=== PATIENT | male | born 1935 | race Caucasian/White ===

== ENCOUNTER 2018-01-25 23:57 | Inpatient (IN) | payer MEDICARE ==
--- NOTE | 2018-01-26 00:23 | ED ---
Chest Pain HPI - General Chief Complaint: Chest Pain Stated Complaint: chest pain Time Seen by Provider: 01/26/18 00:08 Source: patient, EMS Mode of arrival: EMS Limitations: no limitations - History of Present Illness Initial Comments: This patient is an 82-year-old man with history of previous cervical spine injury and paraplegia who presents to be evaluated for substernal chest pain that started tonight. The patient states the pain is in the lower substernal and epigastric area. The pain is constant, aching, and moderately severe. He has not discovered any worsening or relieving factors. He did have some associated nausea. No other associated symptoms. MD Complaint: chest pain Onset/Timin -: hour(s) Onset: during rest Pain Location: substernal Pain Radiation: none Severity: severe Quality: aching Consistency: constant Improves With: nothing Worsens With: nothing Anginal Symptoms: nausea Treatments Prior to Arrival: aspirin, nitroglycerin, oxygen - Related Data Allergies Allergy/AdvReac Type Severity Reaction Status Date / Time No Known Allergies Allergy Verified 01/26/18 00:26 Review of Systems ROS Statement: Those systems with pertinent positive or pertinent negative responses have been documented in the HPI. ROS Other: All systems not noted in ROS Statement are negative. Constitutional: Denies: fever, chills Respiratory: Denies: cough, dyspnea Cardiovascular: Reports: as per HPI, chest pain. Denies: palpitations, edema, syncope Gastrointestinal: Reports: nausea. Denies: abdominal pain, vomiting, diarrhea, melena, hematochezia Genitourinary: Denies: hematuria Musculoskeletal: Denies: back pain Skin: Denies: rash Neurological: Denies: headache EKG Findings - EKG Results: EKG: interpreted by ERMD, sinus rhythm, normal axis, normal ST/T - Blocks, [place], Hypertrophy, ST Abn: AV and intraventricular conduction: right bundle branch block (fixed/ intermittent, complete/incomplete) Past Medical History Past Medical History: Chest Pain / Angina, Dementia History of Any Multi-Drug Resistant Organisms: None Reported Past Surgical History: Coronary Bypass/CABG Past Psychological History: No Psychological Hx Reported Smoking Status: Never smoker Past Alcohol Use History: None Reported Past Drug Use History: None Reported General Exam Limitations: no limitations General appearance: alert, in no apparent distress Head exam: Present: atraumatic, normocephalic Eye exam: Present: normal appearance. Absent: scleral icterus, conjunctival injection Respiratory exam: Present: normal lung sounds bilaterally. Absent: respiratory distress, wheezes, rales, rhonchi, stridor Cardiovascular Exam: Present: regular rate, normal rhythm, systolic murmur ( Grade 2/6 systolic ejection murmur at the left sternal border.). Absent: diastolic murmur, rubs, gallop GI/Abdominal exam: Present: soft. Absent: distended, tenderness, guarding, rebound, rigid, organomegaly, mass, pulsatile mass, hernia Extremities exam: Present: normal capillary refill. Absent: pedal edema Neurological exam: Present: alert Skin exam: Present: warm, dry, intact, normal color. Absent: rash Course Vital Signs 01/26/18 01/26/18 01/26/18 00:07 00:57 02:47 Temperature 97.7 F 98.2 F Pulse Rate 73 81 72 Respiratory 18 18 18 Rate Blood Pressure 194/93 194/91 192/88 O2 Sat by Pulse 96 98 98 Oximetry Disposition Clinical Impression: Chest pain, Hypertension Disposition: ADMITTED IP TO THIS HOSP Condition: Fair Instructions: Chest Pain (ED) Referrals: Mando Davila MD [Primary Care Provider] - 1-2 days
[2018-01-26 00:32] LABS: Basophils # (A) 0.1 k/uL (0-0.2); Basophils % (A) 1 %; Eosinophils # (A) 0.9 k/uL (0-0.7); Eosinophils % (A) 7 %; HCT 44.4 % (39.0-53.0); HGB 15.4 gm/dL (13.0-17.5); Lymphocytes # (A) 2.1 k/uL (1.0-4.8); Lymphocytes % (A) 16 %; MCH 30.9 pg (25.0-35.0); MCHC 34.6 g/dL (31.0-37.0); MCV 89.2 fL (80.0-100.0); Mean Platelet Volume 7.6; Monocytes # (A) 0.8 k/uL (0-1.0); Monocytes % (A) 6 %; Neutrophils # (A) 8.9 k/uL (1.3-7.7); Neutrophils % (A) 70 %; Platelet Count 113 k/uL (150-450); RBC 4.98 m/uL (4.30-5.90); RDW 14.2 % (11.5-15.5); WBC 12.8 k/uL (3.8-10.6)
[2018-01-26] MEDS ORDERED: MORPHINE SULFATE 4 MG/ML SYRINGE IV STA ×2 (00:38→02:36)
[2018-01-26 00:54] LABS: Creatine Kinase 102 U/L (55-170)
[2018-01-26 01:01] LABS: D-Dimer 0.58 mg/L FEU (<0.60); INR 1.1 (<1.2); Partial Thromboplastin Time 23.8 sec (22.0-30.0); Prothrombin Time 10.5 sec (9.0-12.0)
[2018-01-26 01:05] LABS: Creatine Kinase MB 1.8 ng/mL (0.0-2.4); Troponin I <0.012 ng/mL (0.000-0.034)
--- NOTE | 2018-01-26 01:05 | XR ---
EXAMINATION TYPE: XR chest 1V portable DATE OF EXAM: 01/26/2018 COMPARISON: NONE HISTORY: Chest pain TECHNIQUE: Single frontal view of the chest is obtained. FINDINGS: There is no heart failure nor confluent pneumonic infiltrate. There are sternal wires. The re are chest leads. Bony thorax is intact. There is no pleural effusion. IMPRESSION: No active cardiopulmonary disease.
[2018-01-26 01:39] LABS: ALT 23 U/L (21-72); AST 17 U/L (17-59); Albumin 4.1 g/dL (3.5-5.0); Alkaline Phosphatase 92 U/L (38-126); Anion Gap 10 mmol/L; Blood Urea Nitrogen 17 mg/dL (9-20); Calcium 9.4 mg/dL (8.4-10.2); Carbon Dioxide 24 mmol/L (22-30); Chloride 103 mmol/L (98-107); Glucose 214 mg/dL (74-99); Magnesium 1.7 mg/dL (1.6-2.3); Potassium 4.7 mmol/L (3.5-5.1); Sodium 137 mmol/L (137-145); Total Bilirubin 0.5 mg/dL (0.2-1.3); Total Protein 6.1 g/dL (6.3-8.2)
[2018-01-26] MEDS ORDERED: LABETALOL 5 MG/ML VIAL MDV IVP STA (02:37)
[2018-01-26] MEDS ORDERED: NITROGLYCERIN SL TABS 0.4 MG TAB SUBLINGUAL PRN (03:03)
[2018-01-26 06:43] LABS: Creatine Kinase 50 U/L (55-170)
[2018-01-26 06:56] LABS: Creatine Kinase MB 1.6 ng/mL (0.0-2.4); Troponin I <0.012 ng/mL (0.000-0.034)
[2018-01-26] MEDS: METOPROLOL TARTRATE 25 MG TAB PO SCH ×2 (08:32→20:50)
[2018-01-26] MEDS: DOCUSATE 100 MG CAP PO SCH ×2 (08:32→20:50)
[2018-01-26] MEDS: HEPARIN SODIUM,PORCINE 5,000 UNIT/ML 1 ML VIAL SQ SCH ×2 (08:32→21:11)
[2018-01-26] MEDS: BACLOFEN 10 MG TAB PO SCH ×2 (08:32→20:49)
[2018-01-26] MEDS: SERTRALINE 25 MG TAB PO SCH (08:32)
[2018-01-26] MEDS ORDERED: SERTRALINE 25 MG TAB PO SCH (10:30)
[2018-01-26] MEDS ORDERED: BACLOFEN 10 MG TAB PO SCH (10:30)
[2018-01-26] MEDS: CHOLESTYRAMINE (WITH SUGAR) 4 GM PACKET PO SCH ×2 (11:52→20:49)
[2018-01-26] MEDS: ALPRAZolam 0.25 MG TAB PO SCH ×2 (11:52→21:41)
[2018-01-26] MEDS: DONEPEZIL 10 MG TAB PO SCH (11:53)
[2018-01-26] MEDS: PANTOPRAZOLE 40 MG TABLET PO SCH (11:54)
[2018-01-26 12:33] LABS: Creatine Kinase 78 U/L (55-170)
[2018-01-26 12:45] LABS: Creatine Kinase MB 1.8 ng/mL (0.0-2.4); Troponin I <0.012 ng/mL (0.000-0.034)
--- NOTE | 2018-01-26 13:01 | ECHOF ---
Referral Reason:lvfunction MEASUREMENTS -------- HEIGHT: 172.7 cm WEIGHT: 76.7 kg BP: 121/75 RVIDd: 2.9 cm (< 3.3) IVSd: 1.2 cm (0.6 - 1.1) LVIDd: 2.5 cm (3.9 - 5.3) LVPWd: 1.2 cm (0.6 - 1.1) IVSs: 1.6 cm LVIDs: 2.0 cm LVPWs: 1.5 cm LAESV Index (A-L): 24.27 ml/m Ao Diam: 3.3 cm (2.0 - 3.7) AV Cusp: 1.2 cm (1.5 - 2.6) LA Diam: 2.8 cm (2.7 - 3.8) MV E Cheo: 0.84 m/s MV DecT: 208 ms MV A Cheo: 1.44 m/s MV E/A Ratio: 0.58 AV maxP.49 mmHg AV meanP.74 mmHg RAP: 5.00 mmHg RVSP: 29.84 mmHg FINDINGS -------- Sinus rhythm. This was a technically adequate study. The left ventricular size is normal. There is mild concentric left ventricular hypertrophy. Overa ll left ventricular systolic function is normal with, an EF between 55 - 60 %. The right ventricle is normal in size and function. Normal LA size by volume 22+/-6 ml/m2. The right atrium is normal in size. Aortic valve is trileaflet and is moderately thickened. There is no evidence of aortic regurgitatio n. There is moderate aortic stenosis present. Peak/mean gradient across the Aortic Valve is 36.49 mmHg / 21.74mmHg. The mitral valve leaflets are mildly thickened. Mild mitral annular calcification present. Mild m itral regurgitation is present. Trace tricuspid regurgitation present. Right ventricular systolic pressure is normal at < 35 mmHg. There is no evidence of pulmonary hypertension. Trace/mild (physiologic) pulmonic regurgitation. The aortic root size is normal. IVC Not well visulized. There is no pericardial effusion. CONCLUSIONS -------- 1. Sinus rhythm. 2. This was a technically adequate study. 3. The left ventricular size is normal. 4. There is mild concentric left ventricular hypertrophy. 5. Overall left ventricular systolic function is normal with, an EF between 55 - 60 %. 6. Normal LA size by volume 22+/-6 ml/m2. 7. Aortic valve is trileaflet and is moderately thickened. 8. There is moderate aortic stenosis present. 9. Peak/mean gradient across the Aortic Valve is 36.49mmHg / 21.74mmHg. 10. The mitral valve leaflets are mildly thickened. 11. Mild mitral annular calcification present. 12. Mild mitral regurgitation is present. 13. Trace tricuspid regurgitation present. 14. Right ventricular systolic pressure is normal at < 35 mmHg. 15. There is no evidence of pulmonary hypertension. 16. Trace/mild (physiologic) pulmonic regurgitation. 17. The aortic root size is normal. 18. IVC Not well visulized. 19. There is no pericardial effusion. HALF SECTION IRONER: Imtiaz Pennington RDCS
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
[2018-01-26] MEDS: ACETAMINOPHEN TAB 325 MG TAB PO PRN (18:31)
[2018-01-26 19:19] LABS: Appearance,Urine Clear (Clear); Bilirubin,Urine Negative (Negative); Blood,Urine Trace (Negative); Color,Urine Yellow; Glucose,Urine (UA) 4+ (Negative); Ketones,Urine Negative (Negative); Leukocyte Esterase,Urine Negative (Negative); Mucus,Urine Rare /hpf; Nitrite,Urine Negative (Negative); Protein,Urine Negative (Negative); RBC,Urine 11 /hpf (0-5); Specific Gravity,Urine 1.016 (1.001-1.035); Urobilinogen,Urine <2.0 mg/dL (<2.0); WBC,Urine <1 /hpf (0-5)
[2018-01-26 19:24] LABS: Basophils # (A) 0.1 k/uL (0-0.2); Basophils % (A) 0 %; Eosinophils # (A) 0.2 k/uL (0-0.7); Eosinophils % (A) 1 %; HCT 43.9 % (39.0-53.0); HGB 15.3 gm/dL (13.0-17.5); Lymphocytes # (A) 1.7 k/uL (1.0-4.8); Lymphocytes % (A) 10 %; MCH 31.8 pg (25.0-35.0); MCHC 34.8 g/dL (31.0-37.0); MCV 91.4 fL (80.0-100.0); Mean Platelet Volume 6.4; Monocytes # (A) 1.2 k/uL (0-1.0); Monocytes % (A) 7 %; Neutrophils # (A) 12.9 k/uL (1.3-7.7); Neutrophils % (A) 79 %; Platelet Count 166 k/uL (150-450); RDW 14.3 % (11.5-15.5); WBC 16.3 k/uL (3.8-10.6)
[2018-01-26] MEDS ORDERED: LEVOFLOXACIN 500MG-D5W PMX 500 MG in DEXTROSE/WATER 1 100ML.BAG IVPB STA (20:02)
[2018-01-26] MEDS: IOPAMIDOL-300 CONTRAST 30 ML VIAL (ORAL USE) PO PRN ×2 (20:16→21:11)
[2018-01-26] MEDS: SODIUM CHLORIDE 0.9% 1,000 ML IV SCH (20:18)
[2018-01-26] MEDS: TRIAMCINOLONE 0.1% CREAM 80 GM TUBE TOPICAL SCH (20:50)
[2018-01-26] MEDS ORDERED: ALPRAZolam 0.25 MG TAB PO SCH (21:00)
--- NOTE | 2018-01-26 22:43 | CT ---
EXAMINATION TYPE: CT abdomen pelvis w con DATE OF EXAM: 01/26/2018 COMPARISON: None HISTORY: Abdominal distention CT DLP: 1861.7 mGycm Automated exposure control for dose reduction was used. TECHNIQUE: Helical acquisition of images was performed from the lung bases through the pelvis. CONTRAST: Performed with Oral Contrast and with IV Contrast, patient injected with 100 mL of Isovue 300. FINDINGS: There is subsegmental atelectasis at the posterior lung bases. Heart size is normal. There is no evelina cardial effusion. Liver spleen pancreas appear normal. Gallbladder appears normal. Bile ducts are not dilated. There are some gas-filled mildly distended loops of large bowel. Bladder distends smoothly. There is no pelvic mass. There is no intestinal wall thickening. There are no dilated loops. There is a small amount of fluid in the right paracolic gutter adjacent to the liver. There is no adrenal mass. Kidneys show satisfactory contrast opacification. There is no hydronephrosi s. There is 2 cm cortical cyst lower pole left kidney. There is no retroperitoneal adenopathy. Abdomi nal aorta is atheromatous. There is a small amount of free fluid above the urinary bladder. Appendix is not seen. There is no sign of appendicitis. IMPRESSION: THERE IS SOME FREE FLUID IN THE ABDOMEN IN THE PELVIS AND RIGHT PARACOLIC GUTTER OF UNCERTAIN ORIGIN AND SIGNIFICANCE. NO SIGN OF APPENDICITIS. NO SIGN OF INFLAMMATORY BOWEL DISEASE. HIATAL HERNIA NOTED . MILD INTERSTITIAL INFILTRATE THE LUNG BASES WITH SUBSEGMENTAL ATELECTASIS.
[2018-01-27 06:08] LABS: Basophils % (A) 0 %; Eosinophils # (A) 0.1 k/uL (0-0.7); Eosinophils % (A) 1 %; HCT 42.9 % (39.0-53.0); HGB 14.7 gm/dL (13.0-17.5); Lymphocytes # (A) 1.5 k/uL (1.0-4.8); Lymphocytes % (A) 8 %; MCH 31.7 pg (25.0-35.0); MCHC 34.2 g/dL (31.0-37.0); MCV 92.6 fL (80.0-100.0); Mean Platelet Volume 6.5; Monocytes # (A) 1.6 k/uL (0-1.0); Monocytes % (A) 8 %; Neutrophils # (A) 15.4 k/uL (1.3-7.7); Neutrophils % (A) 82 %; Platelet Count 157 k/uL (150-450); RBC 4.63 m/uL (4.30-5.90); RDW 14.5 % (11.5-15.5); WBC 18.8 k/uL (3.8-10.6)
[2018-01-27 06:34] LABS: ALT 32 U/L (21-72); AST 27 U/L (17-59); Albumin 3.4 g/dL (3.5-5.0); Alkaline Phosphatase 59 U/L (38-126); Anion Gap 9 mmol/L; Blood Urea Nitrogen 24 mg/dL (9-20); Calcium 8.9 mg/dL (8.4-10.2); Carbon Dioxide 22 mmol/L (22-30); Chloride 102 mmol/L (98-107); Cholesterol 195 mg/dL (<200); Glucose 204 mg/dL (74-99); HDL Cholesterol 35 mg/dL (40-60); LDL Cholesterol,Calculated 122 mg/dL (0-99); Potassium 4.6 mmol/L (3.5-5.1); Sodium 133 mmol/L (137-145); Total Bilirubin 1.4 mg/dL (0.2-1.3); Total Protein 5.4 g/dL (6.3-8.2); Triglycerides 192 mg/dL (<150)
[2018-01-27] MEDS: PANTOPRAZOLE 40 MG TABLET PO SCH (08:55)
[2018-01-27] MEDS: BACLOFEN 10 MG TAB PO SCH ×2 (08:55→20:23)
[2018-01-27] MEDS: DONEPEZIL 10 MG TAB PO SCH (08:55)
[2018-01-27] MEDS: ACETAMINOPHEN TAB 325 MG TAB PO PRN ×2 (08:55→20:23)
[2018-01-27] MEDS: ASPIRIN 81 MG PO SCH (08:56)
[2018-01-27] MEDS: DOCUSATE 100 MG CAP PO SCH ×2 (08:56→20:24)
[2018-01-27] MEDS: SERTRALINE 25 MG TAB PO SCH (08:56)
[2018-01-27] MEDS: METOPROLOL SUCCINATE (ER) 25 MG TAB.ER.24H PO SCH (08:56)
[2018-01-27] MEDS: ISOSORBIDE MONONITRATE ER 30 MG TAB.ER.24H PO SCH (08:56)
[2018-01-27] MEDS: CHOLESTYRAMINE (WITH SUGAR) 4 GM PACKET PO SCH ×2 (08:57→20:25)
[2018-01-27] MEDS: HEPARIN SODIUM,PORCINE 5,000 UNIT/ML 1 ML VIAL SQ SCH ×2 (08:57→20:24)
[2018-01-27] MEDS ORDERED: ASPIRIN 325 MG TAB PO SCH (09:00)
[2018-01-27] MEDS: ALPRAZolam 0.25 MG TAB PO SCH ×2 (10:12→20:23)
[2018-01-27] MEDS: SODIUM CHLORIDE 0.9% 1,000 ML IV SCH ×2 (10:27→22:25)
[2018-01-27] MEDS: PIPERACILLIN-TAZOBACTAM 3.375 GM in DEXTROSE/WATER 1 50ML.BAG IVPB SCH ×2 (11:11→22:25)
[2018-01-27] MEDS: TRIAMCINOLONE 0.1% CREAM 80 GM TUBE TOPICAL SCH ×2 (12:00→20:25)
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
--- NOTE | 2018-01-27 14:21 | XR ---
EXAMINATION TYPE: XR chest 2V DATE OF EXAM: 01/27/2018 COMPARISON: Prior chest 01/26/2018 HISTORY: Fever TECHNIQUE: Frontal and lateral views of the chest are obtained. FINDINGS: Patient is status post median sternotomy. Postop change noted in the cervical spine. No ev ident pneumothorax, minimal blunting the posterior costophrenic angle could represent a minimal effus ion. Lung volumes are low. Cardiomediastinal silhouette, pulmonary vascularity and rose not significa ntly changed. Patchy basilar density is present. IMPRESSION: Expiratory exam. Probable basilar atelectasis, additional findings above, follow-up as i ndicated.
[2018-01-27] MEDS ORDERED: VANCOMYCIN IV PER PHARMACY 1 EACH MISC MISCELLANE PRN (19:45)
[2018-01-27] MEDS ORDERED: VANCOMYCIN 1,500 MG in SODIUM CHLORIDE 0.9% 250 ML IVPB ONE (20:30)
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
[2018-01-28] MEDS: PIPERACILLIN-TAZOBACTAM 3.375 GM in DEXTROSE/WATER 1 50ML.BAG IVPB SCH ×3 (03:16→19:41)
[2018-01-28] MEDS: BACLOFEN 10 MG TAB PO SCH ×2 (09:11→21:13)
[2018-01-28] MEDS: DONEPEZIL 10 MG TAB PO SCH (09:11)
[2018-01-28] MEDS: ALPRAZolam 0.25 MG TAB PO SCH ×2 (09:11→21:12)
[2018-01-28] MEDS: ISOSORBIDE MONONITRATE ER 30 MG TAB.ER.24H PO SCH (09:11)
[2018-01-28] MEDS: SERTRALINE 25 MG TAB PO SCH (09:12)
[2018-01-28] MEDS: PANTOPRAZOLE 40 MG TABLET PO SCH (09:12)
[2018-01-28] MEDS: TRIAMCINOLONE 0.1% CREAM 80 GM TUBE TOPICAL SCH ×2 (09:12→21:16)
[2018-01-28] MEDS: DOCUSATE 100 MG CAP PO SCH ×2 (09:12→21:13)
[2018-01-28] MEDS: METOPROLOL SUCCINATE (ER) 25 MG TAB.ER.24H PO SCH (09:12)
[2018-01-28] MEDS: CHOLESTYRAMINE (WITH SUGAR) 4 GM PACKET PO SCH ×2 (09:12→19:37)
[2018-01-28] MEDS: HEPARIN SODIUM,PORCINE 5,000 UNIT/ML 1 ML VIAL SQ SCH ×2 (09:12→21:14)
[2018-01-28] MEDS: ASPIRIN 81 MG PO SCH (09:12)
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
[2018-01-28 11:41] LABS: Glucose,Whole Blood 177 mg/dL (75-99)
[2018-01-28] MEDS: VANCOMYCIN 1,250 MG in SODIUM CHLORIDE 0.9% 250 ML IVPB SCH (11:53)
[2018-01-28] MEDS: SODIUM CHLORIDE 0.9% 1,000 ML IV SCH (11:53)
[2018-01-28] MEDS: ACETAMINOPHEN TAB 325 MG TAB PO PRN (21:12)
[2018-01-29] MEDS: SODIUM CHLORIDE 0.9% 1,000 ML IV SCH ×2 (02:42→16:11)
[2018-01-29] MEDS: VANCOMYCIN 1,250 MG in SODIUM CHLORIDE 0.9% 250 ML IVPB SCH (02:43)
[2018-01-29] MEDS: PIPERACILLIN-TAZOBACTAM 3.375 GM in DEXTROSE/WATER 1 50ML.BAG IVPB SCH ×3 (05:00→19:25)
[2018-01-29 06:34] LABS: HCT 36.3 % (39.0-53.0); HGB 12.1 gm/dL (13.0-17.5); MCHC 33.3 g/dL (31.0-37.0); MCV 93.1 fL (80.0-100.0); Platelet Count 134 k/uL (150-450); RDW 14.3 % (11.5-15.5); WBC 10.1 k/uL (3.8-10.6)
[2018-01-29 06:45] LABS: ALT 29 U/L (21-72); AST 28 U/L (17-59); Alkaline Phosphatase 63 U/L (38-126); Anion Gap 7 mmol/L; Blood Urea Nitrogen 15 mg/dL (9-20); Calcium 8.4 mg/dL (8.4-10.2); Carbon Dioxide 24 mmol/L (22-30); Chloride 107 mmol/L (98-107); Glucose 128 mg/dL (74-99); Potassium 4.1 mmol/L (3.5-5.1); Sodium 138 mmol/L (137-145); Total Bilirubin 0.6 mg/dL (0.2-1.3); Total Protein 5.1 g/dL (6.3-8.2)
[2018-01-29] MEDS: DONEPEZIL 10 MG TAB PO SCH (08:07)
[2018-01-29] MEDS: ASPIRIN 81 MG PO SCH (08:07)
[2018-01-29] MEDS: METOPROLOL SUCCINATE (ER) 25 MG TAB.ER.24H PO SCH (08:07)
[2018-01-29] MEDS: ISOSORBIDE MONONITRATE ER 30 MG TAB.ER.24H PO SCH (08:07)
[2018-01-29] MEDS: ALPRAZolam 0.25 MG TAB PO SCH ×2 (08:07→19:25)
[2018-01-29] MEDS: BACLOFEN 10 MG TAB PO SCH ×2 (08:07→19:25)
[2018-01-29] MEDS: PANTOPRAZOLE 40 MG TABLET PO SCH (08:07)
[2018-01-29] MEDS: DOCUSATE 100 MG CAP PO SCH ×2 (08:07→19:25)
[2018-01-29] MEDS: CHOLESTYRAMINE (WITH SUGAR) 4 GM PACKET PO SCH ×2 (08:07→19:20)
[2018-01-29] MEDS: SERTRALINE 25 MG TAB PO SCH (08:07)
[2018-01-29] MEDS: HEPARIN SODIUM,PORCINE 5,000 UNIT/ML 1 ML VIAL SQ SCH ×2 (08:07→19:26)
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
[2018-01-29] MEDS: TRIAMCINOLONE 0.1% CREAM 80 GM TUBE TOPICAL SCH ×2 (16:11→19:26)
[2018-01-30] MEDS: SODIUM CHLORIDE 0.9% 1,000 ML IV SCH (03:26)
[2018-01-30] MEDS: PIPERACILLIN-TAZOBACTAM 3.375 GM in DEXTROSE/WATER 1 50ML.BAG IVPB SCH ×3 (03:26→21:18)
[2018-01-30] MEDS: BACLOFEN 10 MG TAB PO SCH ×2 (08:19→21:28)
[2018-01-30] MEDS: DOCUSATE 100 MG CAP PO SCH ×2 (08:20→21:28)
[2018-01-30] MEDS: DONEPEZIL 10 MG TAB PO SCH (08:20)
[2018-01-30] MEDS: CHOLESTYRAMINE (WITH SUGAR) 4 GM PACKET PO SCH ×2 (08:20→21:27)
[2018-01-30] MEDS: HEPARIN SODIUM,PORCINE 5,000 UNIT/ML 1 ML VIAL SQ SCH ×2 (08:21→21:28)
[2018-01-30] MEDS: ISOSORBIDE MONONITRATE ER 30 MG TAB.ER.24H PO SCH (08:21)
[2018-01-30] MEDS: METOPROLOL SUCCINATE (ER) 25 MG TAB.ER.24H PO SCH (08:21)
[2018-01-30] MEDS: PANTOPRAZOLE 40 MG TABLET PO SCH (08:22)
[2018-01-30] MEDS: SERTRALINE 25 MG TAB PO SCH (08:23)
[2018-01-30] MEDS: TRIAMCINOLONE 0.1% CREAM 80 GM TUBE TOPICAL SCH ×2 (08:24→21:28)
[2018-01-30] MEDS: ASPIRIN 81 MG PO SCH (08:24)
[2018-01-30] MEDS: ALPRAZolam 0.25 MG TAB PO SCH ×2 (08:26→21:27)
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
[2018-01-30] MEDS: ACETAMINOPHEN TAB 325 MG TAB PO PRN (23:26)
[2018-01-31] MEDS: PIPERACILLIN-TAZOBACTAM 3.375 GM in DEXTROSE/WATER 1 50ML.BAG IVPB SCH ×3 (05:19→21:08)
[2018-01-31 06:00] LABS: HCT 33.2 % (39.0-53.0); MCH 30.5 pg (25.0-35.0); MCHC 33.3 g/dL (31.0-37.0); MCV 91.8 fL (80.0-100.0); Mean Platelet Volume 6.5; Platelet Count 173 k/uL (150-450); RBC 3.61 m/uL (4.30-5.90); RDW 14.3 % (11.5-15.5); WBC 7.1 k/uL (3.8-10.6)
[2018-01-31 06:12] LABS: Anion Gap 6 mmol/L; Blood Urea Nitrogen 11 mg/dL (9-20); Calcium 8.2 mg/dL (8.4-10.2); Carbon Dioxide 22 mmol/L (22-30); Chloride 109 mmol/L (98-107); Glucose 135 mg/dL (74-99); Potassium 3.9 mmol/L (3.5-5.1); Sodium 137 mmol/L (137-145)
[2018-01-31] MEDS: SERTRALINE 25 MG TAB PO SCH (08:21)
[2018-01-31] MEDS: CHOLESTYRAMINE (WITH SUGAR) 4 GM PACKET PO SCH ×2 (08:21→21:08)
[2018-01-31] MEDS: METOPROLOL SUCCINATE (ER) 25 MG TAB.ER.24H PO SCH (08:21)
[2018-01-31] MEDS: DOCUSATE 100 MG CAP PO SCH ×2 (08:21→21:09)
[2018-01-31] MEDS: TRIAMCINOLONE 0.1% CREAM 80 GM TUBE TOPICAL SCH ×2 (08:21→21:08)
[2018-01-31] MEDS: BACLOFEN 10 MG TAB PO SCH ×2 (08:21→21:09)
[2018-01-31] MEDS: ASPIRIN 81 MG PO SCH (08:21)
[2018-01-31] MEDS: HEPARIN SODIUM,PORCINE 5,000 UNIT/ML 1 ML VIAL SQ SCH ×2 (08:22→21:09)
[2018-01-31] MEDS: DONEPEZIL 10 MG TAB PO SCH (08:22)
[2018-01-31] MEDS: ISOSORBIDE MONONITRATE ER 30 MG TAB.ER.24H PO SCH (08:22)
[2018-01-31] MEDS: PANTOPRAZOLE 40 MG TABLET PO SCH (08:22)
[2018-01-31] MEDS: ALPRAZolam 0.25 MG TAB PO SCH ×2 (08:40→21:08)
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
[2018-01-31 13:52] VITALS: BMI 28.0
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
[2018-02-01] MEDS: PIPERACILLIN-TAZOBACTAM 3.375 GM in DEXTROSE/WATER 1 50ML.BAG IVPB SCH ×2 (04:49→12:26)
[2018-02-01] MEDS: DONEPEZIL 10 MG TAB PO SCH (08:37)
[2018-02-01] MEDS: BACLOFEN 10 MG TAB PO SCH (08:37)
[2018-02-01] MEDS: DOCUSATE 100 MG CAP PO SCH (08:37)
[2018-02-01] MEDS: ISOSORBIDE MONONITRATE ER 30 MG TAB.ER.24H PO SCH (08:37)
[2018-02-01] MEDS: ALPRAZolam 0.25 MG TAB PO SCH (08:37)
[2018-02-01] MEDS: METOPROLOL SUCCINATE (ER) 25 MG TAB.ER.24H PO SCH (08:38)
[2018-02-01] MEDS: HEPARIN SODIUM,PORCINE 5,000 UNIT/ML 1 ML VIAL SQ SCH (08:38)
[2018-02-01] MEDS: PANTOPRAZOLE 40 MG TABLET PO SCH (08:38)
[2018-02-01] MEDS: ASPIRIN 81 MG PO SCH (08:38)
[2018-02-01] MEDS: TRIAMCINOLONE 0.1% CREAM 80 GM TUBE TOPICAL SCH (08:38)
[2018-02-01] MEDS: SERTRALINE 25 MG TAB PO SCH (08:38)
[2018-02-01] MEDS: CHOLESTYRAMINE (WITH SUGAR) 4 GM PACKET PO SCH (08:38)
[2018-02-01 12:44] VITALS: RESP 18; TEMP 98
[2018-02-01 18:20] VITALS: BP 116/62; PULSE 76
== END 2018-02-01 18:34 | DRG 872 ==
LOC: EC 23:57 → 6SEL 01-26 03:03
PROVIDERS: ADMIT Internal Medicine Geriatric Medicine; ATTEND Internal Medicine Geriatric Medicine
DX: A41.9 Sepsis, unspecified organism (principal); F33.9 Major depressive disorder, recurrent, unspecified; G82.20 Paraplegia, unspecified; I16.1 Hypertensive emergency; J98.11 Atelectasis; N39.0 Urinary tract infection, site not specified; E11.9 Type 2 diabetes mellitus without complications; E78.5 Hyperlipidemia, unspecified; F03.90 Unspecified dementia, unspecified severity, without behavioral disturbance, psychotic disturbance, mood disturbance, and anxiety; S14.109S Unspecified injury at unspecified level of cervical spinal cord, sequela; V89.2XXS Person injured in unspecified motor-vehicle accident, traffic, sequela; Z87.820 Personal history of traumatic brain injury; G89.4 Chronic pain syndrome; I08.3 Combined rheumatic disorders of mitral, aortic and tricuspid valves; I10 Essential (primary) hypertension; I25.119 Atherosclerotic heart disease of native coronary artery with unspecified angina pectoris; I45.10 Unspecified right bundle-branch block; K44.9 Diaphragmatic hernia without obstruction or gangrene; N40.1 Benign prostatic hyperplasia with lower urinary tract symptoms; R33.8 Other retention of urine; Z66 Do not resuscitate; Z74.01 Bed confinement status; Z79.899 Other long term (current) drug therapy; Z80.0 Family history of malignant neoplasm of digestive organs; Z82.49 Family history of ischemic heart disease and other diseases of the circulatory system; Z85.828 Personal history of other malignant neoplasm of skin; Z95.1 Presence of aortocoronary bypass graft; Z79.82 Long term (current) use of aspirin
CPT/HCPCS: 36415; 71045; 71046; 74177; 80048; 80053; 80061; 81001; 82550; 82553; 83605; 83735; 84484; 85025; 85027; 85379; 85610; 85730; 87040; 87086; 93005; 93306; 96374; 96375; 96376; 99285